=== PATIENT | female | born 1985 | race Caucasian/White ===

== ENCOUNTER 2017-12-06 09:56 | Emergency (ER) | payer MEDICAID ==
[~2017-12-06] VITALS: Ht 154.9 cm; Wt 46.4 kg
[2017-12-06 09:56] VITALS: BP 117/76
[~2017-12-06 09:56] MED LIST: ALBU8HFA PO; BISA10SU60 RC; CLIN-80 PO; HYDR-569 PO; LOPE2CAP PO; MAGN296S50 PO; NO HOME MEDS; ONDA4TAB6 PO; PRED10TA PO; TRIA15CR61 TOP
[2017-12-06] MEDS ORDERED: ACET1TAB12 PO (10:19)
[2017-12-06] MEDS ORDERED: IBUP-1986 PO (10:19)
[2017-12-06] MEDS ORDERED: CEPH500C5 PO (10:19)
== END 2017-12-06 11:07 | disposition home or self-care (01) ==
LOC: ER 09:56
DX: S91.031A Puncture wound without foreign body, right ankle, initial encounter (principal); F15.10 Other stimulant abuse, uncomplicated; W20.8XXA Other cause of strike by thrown, projected or falling object, initial encounter; Y93.89 Activity, other specified; Y92.89 Other specified places as the place of occurrence of the external cause; Y99.8 Other external cause status; Z79.899 Other long term (current) drug therapy; Z88.0 Allergy status to penicillin
CPT/HCPCS: 73600; 99284

== ENCOUNTER 2019-08-15 09:51 | Emergency (ER) | payer MEDICAID ==
[~2019-08-15] VITALS: Ht 154.9 cm; Wt 47.7 kg
[~2019-08-15 09:51] MED LIST changes: +ACET1TAB12 PO; -CLIN-80 PO; +CLIN-96 PO; +HYDR-4383 PO; -HYDR-569 PO; +IBUP-1986 PO; -TRIA15CR61 TOP
[2019-08-15 10:36] LABS: CLARITY,URINE CLOUDY (Clear); COLOR,URINE YELLOW (Yellow); GLUCOSE, URINE NEGATIVE (Neg); KETONES,URINE NEGATIVE (Neg); LEUKOCYTE ESTERASE ,URINE NEGATIVE (Neg); NITRITES, URINE POSITIVE (Neg); OCCULT BLOOD,URINE TRACE-LYSED (Neg); PH,URINE 7.5 (4.8-8.0); PROTEIN,URINE NEGATIVE (Neg); URINE HCG NEGATIVE (NEG); UROBILINOGEN,URINE 0.2 E.U/dL (0.2-1.0)
[2019-08-15 10:42] LABS: UA COLLECTION TYPE CLN CATCH MIDSTREAM
[2019-08-15 10:44] LABS: BACTERIA,URINE 4+ /HPF (Neg); RBC,URINE 0-2 /HPF (0-2); SQUAMOUS EPITHELIAL CELL,UR FEW /LPF (FEW); WBC CLUMPS,URINE FEW /HPF (NEGATIVE)
[2019-08-15] MEDS ORDERED: ketorolac tromethamine 15mg/ml inj. IM ONE (11:05)
[2019-08-15] MEDS ORDERED: ciprofloxacin 250mg tablet PO ONE (11:05)
[2019-08-15] MEDS ORDERED: TRAM50TA2 PO (11:06)
[2019-08-15] MEDS ORDERED: CIPR-230 PO (11:06)
[2019-08-15] MEDS ORDERED: ondansetron 4mg rapidly disintigrating tab PO ONE (11:35)
[2019-08-15 12:06] VITALS: BP 115/68
== END 2019-08-15 12:10 | disposition home or self-care (01) ==
LOC: ER 09:52
DX: N12 Tubulo-interstitial nephritis, not specified as acute or chronic (principal); F12.90 Cannabis use, unspecified, uncomplicated; F15.90 Other stimulant use, unspecified, uncomplicated; Z87.442 Personal history of urinary calculi; Z98.61 Coronary angioplasty status; Z98.890 Other specified postprocedural states; Z88.0 Allergy status to penicillin; Z79.2 Long term (current) use of antibiotics; Z79.899 Other long term (current) drug therapy
CPT/HCPCS: 81001; 81025; 87088; 87186; 96372; 99283; J1885; 87077

== ENCOUNTER 2020-06-23 19:31 | Emergency (ER) | payer MEDICAID, OTHER ==
[~2020-06-23] VITALS: Ht 154.9 cm; Wt 50.0 kg
[~2020-06-23 19:31] MED LIST changes: -CLIN-96 PO; +CLIN-97 PO; -MAGN296S50 PO; +MAGN296S70 PO
[2020-06-23 20:12] LABS: BASOPHILS % (AUTO) 0.1 % (0-1); EOSINOPHILS # (AUTO) 0.1 X10'3 (0-0.9); EOSINOPHILS % (AUTO) 0.3 % (0-6); HEMOGLOBIN 13.1 g/dl (12.0-16.0); LYMPHOCYTES # (AUTO) 2.4 X10'3 (1.1-4.8); LYMPHOCYTES % (AUTO) 12.4 % (21-51); MEAN CORPUSCULAR HEMOGLOBIN 33.5 PG (27.0-31.0); MEAN CORPUSCULAR HGB CONC 33.5 g/dL (33.0-36.5); MEAN CORPUSCULAR VOLUME 100.1 FL (78-98); MEAN PLATELET VOLUME 7.9 FL (7.4-10.4); MONOCYTES # (AUTO) 1.2 X10'3 (0-0.9); MONOCYTES % (AUTO) 6.3 % (2-12); NEUTROPHILS # (AUTO) 15.3 X10'3 (1.8-7.7); NEUTROPHILS % (AUTO) 80.9 % (42-75); PLATELET COUNT 207 X10'3 (140-440); RED CELL DISTRIBUTION WIDTH 13.6 % (11.5-14.5)
[2020-06-23 20:13] LABS: CLARITY,URINE SLIGHTLY CLOUDY (Clear); COLOR,URINE YELLOW (Yellow); GLUCOSE, URINE NEGATIVE (Neg); KETONES,URINE NEGATIVE (Neg); LEUKOCYTE ESTERASE ,URINE TRACE (Neg); NITRITES, URINE NEGATIVE (Neg); OCCULT BLOOD,URINE SMALL (Neg); PROTEIN,URINE 30 mg/dl (Neg); UROBILINOGEN,URINE 0.2 E.U/dL (0.2-1.0)
[2020-06-23 20:15] LABS: UA COLLECTION TYPE CLN CATCH MIDSTREAM
[2020-06-23 20:20] LABS: URINE HCG NEGATIVE (NEG)
[2020-06-23 20:23] LABS: ALANINE AMINOTRANSFERASE 34 U/L (12-78); ALBUMIN 3.8 G/DL (3.4-5.0); ALBUMIN/GLOBULIN RATIO 1.1 (1.1-1.5); ALKALINE PHOSPHATASE 71 IU/L (46-116); ANION GAP 7 (8-16); ASPARTATE AMINO TRANSFERASE 32 U/L (10-37); BILIRUBIN,TOTAL 0.4 MG/DL (0.1-1.0); BLOOD UREA NITROGEN 15 MG/DL (7-18); BUN/CREATININE RATIO 18.8 (6.6-38.0); CALCIUM 9.6 MG/DL (8.5-10.1); CHLORIDE 100 MMOL/L (99-107); GLUCOSE 88 MG/DL (70-104); POTASSIUM 3.8 MMOL/L (3.5-5.1); SODIUM 133 MMOL/L (135-145); TOTAL CARBON DIOXIDE 26.5 MMOL/L (24-32); TOTAL PROTEIN 7.4 G/DL (6.4-8.2); eGFR 82 ML/MIN
[2020-06-23 20:38] LABS: WBC,URINE 20-30 /HPF (0-4)
[2020-06-23 20:40] LABS: BACTERIA,URINE 2+ /HPF (Neg); MUCUS STRANDS MODERATE /LPF (Neg); RBC,URINE 0-2 /HPF (0-2); SQUAMOUS EPITHELIAL CELL,UR FEW /LPF (FEW)
[2020-06-23 20:41] LABS: AMORPHOUS URATES 1+; WBC CLUMPS,URINE MODERATE /HPF (NEGATIVE)
[2020-06-23] MEDS ORDERED: morphine 4 MG/ML inj SYRINge IV PRN (20:55)
[2020-06-23] MEDS ORDERED: normal saline 1000ML IV soln IV ONE (20:55)
[2020-06-23] MEDS ORDERED: levoFLOXACIN-Levaquin 750MG/D5 150 ML IV ONE (20:55)
[2020-06-23] MEDS ORDERED: ondansetron/PF 4mg/2ml inj IV ONE (20:55)
[2020-06-23] MEDS ORDERED: LEVO750T21 PO (22:06)
[2020-06-23 22:42] VITALS: BP 103/66
== END 2020-06-23 22:45 | disposition home or self-care (01) ==
LOC: ER 19:32
DX: N10 Acute pyelonephritis (principal); F12.90 Cannabis use, unspecified, uncomplicated; F17.200 Nicotine dependence, unspecified, uncomplicated; F15.90 Other stimulant use, unspecified, uncomplicated; Z98.61 Coronary angioplasty status; Z98.890 Other specified postprocedural states; Z88.0 Allergy status to penicillin; Z79.2 Long term (current) use of antibiotics; Z79.899 Other long term (current) drug therapy
CPT/HCPCS: 36415; 80053; 81001; 81025; 85025; 87077; 87088; 87186; 96365; 96375; 99284; J1956; J2270; J2405; J7030

== ENCOUNTER 2020-08-24 19:31 | Emergency (ER) | payer MEDICAID ==
[~2020-08-24] VITALS: Ht 154.9 cm; Wt 50.0 kg
[2020-08-24 19:34] VITALS: BP 100/56
[2020-08-24 19:57] LABS: COLOR,URINE YELLOW (Yellow); GLUCOSE, URINE NEGATIVE (Neg); KETONES,URINE TRACE mg/dl (Neg); LEUKOCYTE ESTERASE ,URINE MODERATE (Neg); NITRITES, URINE POSITIVE (Neg); OCCULT BLOOD,URINE LARGE (Neg); PH,URINE 6.5 (4.8-8.0); PROTEIN,URINE 30 mg/dl (Neg); URINE HCG NEGATIVE (NEG); UROBILINOGEN,URINE 0.2 E.U/dL (0.2-1.0)
[2020-08-24 20:02] LABS: CLARITY,URINE SLIGHTLY CLOUDY (Clear); UA COLLECTION TYPE NON-SPECIFIED
[2020-08-24 20:03] LABS: BACTERIA,URINE 1+ /HPF (Neg); SQUAMOUS EPITHELIAL CELL,UR FEW /LPF (FEW); WBC CLUMPS,URINE MODERATE /HPF (NEGATIVE); WBC,URINE 50-100 /HPF (0-4)
[2020-08-24] MEDS ORDERED: CefTRIAXone 1000mg IM Kit (w/lidocaine diluent) IM ONE (21:50)
[2020-08-24] MEDS ORDERED: ibuprofen tablet 400 MG TABLET PO ONE (21:50)
[2020-08-24] MEDS ORDERED: IBUP-1984 PO (21:50)
[2020-08-24] MEDS ORDERED: acetaminophen 325mg tablet PO ONE (21:50)
[2020-08-24] MEDS ORDERED: ondansetron 4mg rapidly disintigrating tab PO ONE (21:50)
[2020-08-24] MEDS ORDERED: CIP750T PO (21:50)
--- NOTE | 2020-08-24 22:50 | NUR ---
pt didn't want to wait for motrin prescription correction, so left without motrin prescription.
== END 2020-08-24 22:51 | disposition home or self-care (01) ==
LOC: ER 19:32
DX: N39.0 Urinary tract infection, site not specified (principal); F12.90 Cannabis use, unspecified, uncomplicated; F15.90 Other stimulant use, unspecified, uncomplicated; Z90.49 Acquired absence of other specified parts of digestive tract; Z90.89 Acquired absence of other organs; Z98.890 Other specified postprocedural states; Z72.89 Other problems related to lifestyle; Z88.0 Allergy status to penicillin; Z79.899 Other long term (current) drug therapy
CPT/HCPCS: 81001; 81025; 87077; 87088; 87186; 96372; 99284; J0696

== ENCOUNTER 2021-11-16 20:13 | Emergency (ER) | payer MEDICAID ==
[~2021-11-16] VITALS: Ht 154.9 cm; Wt 47.7 kg
[2021-11-16 20:15] VITALS: BP 125/44
[2021-11-16 21:40] LABS: CLARITY,URINE CLOUDY (Clear); COLOR,URINE YELLOW (Yellow); GLUCOSE, URINE NEGATIVE (Neg); KETONES,URINE NEGATIVE (Neg); LEUKOCYTE ESTERASE ,URINE SMALL (Neg); NITRITES, URINE NEGATIVE (Neg); OCCULT BLOOD,URINE LARGE (Neg); PH,URINE 6.5 (4.8-8.0); PROTEIN,URINE 100 mg/dl (Neg); UROBILINOGEN,URINE 0.2 E.U/dL (0.2-1.0)
[2021-11-16 21:44] LABS: URINE HCG NEGATIVE (NEG)
[2021-11-16 21:51] LABS: UA COLLECTION TYPE CLN CATCH MIDSTREAM
[2021-11-16 21:52] LABS: BACTERIA,URINE FEW /HPF (Neg); RBC,URINE 50-100 /HPF (0-2); SQUAMOUS EPITHELIAL CELL,UR MODERATE /LPF (FEW)
== END 2021-11-16 23:15 | disposition left against medical advice (07) ==
LOC: ER 20:14
DX: R10.84 Generalized abdominal pain (principal); Z53.21 Procedure and treatment not carried out due to patient leaving prior to being seen by health care provider
CPT/HCPCS: 81001; 81025; 87088

== ENCOUNTER 2021-12-16 03:18 | Emergency (ER) | payer MEDICAID | END 2021-12-16 06:56 | disposition left against medical advice (07) | LOC: ER 03:19 | DX: N23 Unspecified renal colic (principal); Z53.21 Procedure and treatment not carried out due to patient leaving prior to being seen by health care provider ==

== ENCOUNTER 2023-03-03 23:47 | Emergency (ER) | payer MEDICAID ==
[~2023-03-03] VITALS: Ht 152.4 cm; Wt 47.7 kg
[~2023-03-03 23:47] MED LIST changes: -MAGN296S70 PO; +MAGN296S89 PO
[2023-03-03 23:52] VITALS: BP 106/63
[2023-03-04 00:30] LABS: CLARITY,URINE SLIGHTLY CLOUDY (Clear); COLOR,URINE YELLOW (Yellow); GLUCOSE, URINE NEGATIVE (Neg); KETONES,URINE NEGATIVE (Neg); LEUKOCYTE ESTERASE ,URINE TRACE (Neg); NITRITES, URINE POSITIVE (Neg); OCCULT BLOOD,URINE TRACE-INTACT (Neg); PROTEIN,URINE NEGATIVE (Neg); UROBILINOGEN,URINE 0.2 E.U/dL (0.2-1.0)
[2023-03-04 00:32] LABS: UA COLLECTION TYPE CLN CATCH MIDSTREAM
[2023-03-04 00:39] LABS: BACTERIA,URINE 4+ /HPF (Neg); MUCUS STRANDS FEW /LPF (Neg); RBC,URINE 0-2 /HPF (0-2); SQUAMOUS EPITHELIAL CELL,UR FEW /LPF (FEW); TRANSITIONAL EPI CELLS,URINE FEW /HPF; WBC,URINE 20-30 /HPF (0-4)
[2023-03-04 00:40] LABS: AMORPHOUS PHOSPHATES 1+; WBC CLUMPS,URINE FEW /HPF (NEGATIVE)
--- NOTE | 2023-03-04 00:45 | NUR ---
pt refused covid and flu swab. dr small made aware.
[2023-03-04 00:51] LABS: BASOPHILS % (AUTO) 0.3 % (0-1); EOSINOPHILS % (AUTO) 0.3 % (0-6); HEMATOCRIT 37.3 % (35.0-45.0); HEMOGLOBIN 12.5 g/dl (12.0-16.0); LYMPHOCYTES # (AUTO) 2.3 X10'3 (1.1-4.8); MEAN CORPUSCULAR HEMOGLOBIN 33.2 PG (27.0-31.0); MEAN CORPUSCULAR HGB CONC 33.4 g/dL (33.0-36.5); MEAN CORPUSCULAR VOLUME 99.2 FL (78-98); MEAN PLATELET VOLUME 7.6 FL (7.4-10.4); MONOCYTES # (AUTO) 1.3 X10'3 (0-0.9); MONOCYTES % (AUTO) 10.2 % (2-12); NEUTROPHILS % (AUTO) 71.2 % (42-75); PLATELET COUNT 194 X10'3 (140-440); RED BLOOD COUNT 3.75 X10'6 (4.20-5.60); WHITE BLOOD COUNT 12.7 X10'3 (4.5-11.0)
[2023-03-04 01:15] LABS: ALANINE AMINOTRANSFERASE 23 U/L (12-78); ALBUMIN 3.4 G/DL (3.4-5.0); ALKALINE PHOSPHATASE 59 IU/L (46-116); ANION GAP 5 (8-16); ASPARTATE AMINO TRANSFERASE 22 U/L (10-37); BILIRUBIN,TOTAL 0.3 MG/DL (0.1-1.0); BLOOD UREA NITROGEN 12 MG/DL (7-18); BUN/CREATININE RATIO 15.2 (10.0-20.0); CALCIUM 8.8 MG/DL (8.5-10.1); CHLORIDE 103 MMOL/L (99-107); CREATININE 0.79 MG/DL (0.40-0.90); GLUCOSE 101 MG/DL (70-104); SODIUM 137 MMOL/L (135-145); TOTAL CARBON DIOXIDE 28.7 MMOL/L (24-32); TOTAL PROTEIN 6.8 G/DL (6.4-8.2); eGFR 81 ML/MIN
[2023-03-04 01:21] LABS: BETA HCG,QUANTITATIVE < 1.0 mIU/ml
== END 2023-03-04 03:39 | disposition left against medical advice (07) ==
LOC: ER 23:48
DX: R10.9 Unspecified abdominal pain (principal); Z53.21 Procedure and treatment not carried out due to patient leaving prior to being seen by health care provider
CPT/HCPCS: 36415; 80053; 81001; 84702; 85025; 87077; 87088; 87186; 99281

== ENCOUNTER 2023-03-27 01:58 | Emergency (ER) | payer MEDICAID ==
[~2023-03-27] VITALS: Ht 152.4 cm; Wt 47.7 kg
[2023-03-27 01:59] VITALS: BP 113/60
[2023-03-27 02:38] LABS: CLARITY,URINE SLIGHTLY CLOUDY (Clear); COLOR,URINE YELLOW (Yellow); GLUCOSE, URINE NEGATIVE (Neg); KETONES,URINE NEGATIVE (Neg); LEUKOCYTE ESTERASE ,URINE NEGATIVE (Neg); NITRITES, URINE POSITIVE (Neg); OCCULT BLOOD,URINE TRACE-INTACT (Neg); PH,URINE 6.5 (4.8-8.0); PROTEIN,URINE NEGATIVE (Neg); UROBILINOGEN,URINE 0.2 E.U/dL (0.2-1.0)
[2023-03-27 02:56] LABS: UA COLLECTION TYPE CLN CATCH MIDSTREAM
[2023-03-27 02:57] LABS: BACTERIA,URINE 4+ /HPF (Neg); SQUAMOUS EPITHELIAL CELL,UR MANY /LPF (FEW)
[2023-03-27] MEDS ORDERED: ondansetron/PF 4mg/2ml inj IV ONE (03:40)
[2023-03-27] MEDS ORDERED: morphine 4 MG/ML inj SYRINge IV PRN (03:40)
[2023-03-27] MEDS ORDERED: normal saline 1000ML IV soln IVB ONE (03:40)
[2023-03-27 04:52] LABS: BASOPHILS % (AUTO) 0.4 % (0-1); EOSINOPHILS % (AUTO) 0.2 % (0-6); HEMATOCRIT 35.2 % (35.0-45.0); HEMOGLOBIN 11.6 g/dl (12.0-16.0); LYMPHOCYTES # (AUTO) 0.5 X10'3 (1.1-4.8); LYMPHOCYTES % (AUTO) 7.6 % (21-51); MEAN CORPUSCULAR HEMOGLOBIN 32.7 PG (27.0-31.0); MEAN CORPUSCULAR VOLUME 98.9 FL (78-98); MEAN PLATELET VOLUME 8.1 FL (7.4-10.4); MONOCYTES # (AUTO) 0.9 X10'3 (0-0.9); MONOCYTES % (AUTO) 14.3 % (2-12); NEUTROPHILS # (AUTO) 4.7 X10'3 (1.8-7.7); NEUTROPHILS % (AUTO) 77.5 % (42-75); PLATELET COUNT 145 X10'3 (140-440); RED BLOOD COUNT 3.55 X10'6 (4.20-5.60); RED CELL DISTRIBUTION WIDTH 14.5 % (11.5-14.5)
[2023-03-27 05:05] LABS: ALANINE AMINOTRANSFERASE 18 U/L (12-78); ALBUMIN 3.3 G/DL (3.4-5.0); ALBUMIN/GLOBULIN RATIO 1.2 (1.1-1.5); ALKALINE PHOSPHATASE 56 IU/L (46-116); ANION GAP 5 (8-16); ASPARTATE AMINO TRANSFERASE 14 U/L (10-37); BILIRUBIN,TOTAL 0.2 MG/DL (0.1-1.0); BLOOD UREA NITROGEN 12 MG/DL (7-18); BUN/CREATININE RATIO 11.7 (10.0-20.0); CALCIUM 7.8 MG/DL (8.5-10.1); CHLORIDE 106 MMOL/L (99-107); CREATININE 1.03 MG/DL (0.40-0.90); GLUCOSE 93 MG/DL (70-104); LIPASE 52 U/L (73-393); SODIUM 136 MMOL/L (135-145); TOTAL CARBON DIOXIDE 25.3 MMOL/L (24-32); eGFR 60 ML/MIN
[2023-03-27] MEDS ORDERED: CefTRIAXone 2gm/D5W 50ml BAG 50 ML IV ONE (05:15)
[2023-03-27] MEDS ORDERED: CEPH-585 PO (06:05)
[2023-03-27] MEDS ORDERED: HYDR-3973 PO (06:05)
== END 2023-03-27 08:04 | disposition home or self-care (01) ==
LOC: ER 01:58
DX: N12 Tubulo-interstitial nephritis, not specified as acute or chronic (principal); F12.90 Cannabis use, unspecified, uncomplicated; F15.90 Other stimulant use, unspecified, uncomplicated; Z72.89 Other problems related to lifestyle; Z90.89 Acquired absence of other organs; Z98.890 Other specified postprocedural states; Z87.442 Personal history of urinary calculi; Z88.0 Allergy status to penicillin; Z79.899 Other long term (current) drug therapy
CPT/HCPCS: 36415; 74176; 80053; 81001; 83690; 85025; 96361; 96365; 96375; 99285; J0696; J2270; J2405; J7030

== ENCOUNTER 2023-03-29 14:29 | Emergency (ER) | payer MEDICAID ==
[~2023-03-29 14:29] MED LIST changes: +CEPH-585 PO; +HYDR-3973 PO
== END 2023-03-29 18:12 | disposition left against medical advice (07) ==
LOC: ER 14:30
DX: N20.0 Calculus of kidney (principal); N30.90 Cystitis, unspecified without hematuria; Z53.21 Procedure and treatment not carried out due to patient leaving prior to being seen by health care provider

== ENCOUNTER 2024-04-04 15:57 | Emergency (ER) | payer MEDICAID ==
[~2024-04-04] VITALS: Ht 152.4 cm; Wt 49.4 kg
[~2024-04-04 15:57] MED LIST changes: -CEPH-585 PO; -HYDR-3973 PO
[2024-04-04 16:05] VITALS: BP 129/70; PULSE 82; RESP 18; TEMP 98.9; O2SAT 99
[2024-04-04 16:59] LABS: URINE HCG NEGATIVE (NEG)
[2024-04-04 17:00] LABS: BILIRUBIN,URINE NEGATIVE (Neg); CLARITY,URINE CLOUDY (Clear); COLOR,URINE YELLOW (Yellow); GLUCOSE, URINE NEGATIVE (Neg); KETONES,URINE NEGATIVE (Neg); LEUKOCYTE ESTERASE ,URINE SMALL (Neg); NITRITES, URINE POSITIVE (Neg); OCCULT BLOOD,URINE TRACE-INTACT (Neg); PROTEIN,URINE NEGATIVE (Neg); UROBILINOGEN,URINE 0.2 E.U/dL (0.2-1.0)
[2024-04-04 17:03] LABS: UA COLLECTION TYPE CLN CATCH MIDSTREAM
[2024-04-04 17:11] LABS: SQUAMOUS EPITHELIAL CELL,UR MANY /LPF (FEW); WBC,URINE 50-100 /HPF (0-4)
[2024-04-04 17:12] LABS: BACTERIA,URINE 4+ /HPF (Neg); RBC,URINE NONE SEEN /HPF (0-2)
[2024-04-05] MEDS ORDERED: CEPH-585 PO (02:01)
[2024-04-05] MEDS ORDERED: TRAM50TA2 PO ×2 (02:02→02:04)
== END 2024-04-04 18:15 | disposition left against medical advice (07) ==
LOC: ER 15:57
DX: N23 Unspecified renal colic (principal); Z53.21 Procedure and treatment not carried out due to patient leaving prior to being seen by health care provider
CPT/HCPCS: 81001; 81025

== ENCOUNTER 2024-04-05 00:16 | Emergency (ER) | payer MEDICAID ==
[~2024-04-05] VITALS: Ht 152.4 cm; Wt 49.0 kg
[2024-04-05 00:22] VITALS: BP 104/69; PULSE 88; TEMP 98.2; O2SAT 99
[2024-04-05 00:51] LABS: BASOPHILS # (AUTO) 0.1 X10'3 (0-0.2); BASOPHILS % (AUTO) 0.8 % (0-1); EOSINOPHILS # (AUTO) 0.1 X10'3 (0-0.9); EOSINOPHILS % (AUTO) 1.2 % (0-6); HEMATOCRIT 36.4 % (35.0-45.0); HEMOGLOBIN 12.3 g/dl (12.0-16.0); LYMPHOCYTES # (AUTO) 2.4 X10'3 (1.1-4.8); LYMPHOCYTES % (AUTO) 31.4 % (21-51); MEAN CORPUSCULAR HEMOGLOBIN 33.7 PG (27.0-31.0); MEAN CORPUSCULAR HGB CONC 33.8 g/dL (33.0-36.5); MEAN CORPUSCULAR VOLUME 99.9 FL (78-98); MEAN PLATELET VOLUME 7.7 FL (7.4-10.4); MONOCYTES # (AUTO) 1.1 X10'3 (0-0.9); MONOCYTES % (AUTO) 14.9 % (2-12); NEUTROPHILS # (AUTO) 3.9 X10'3 (1.8-7.7); NEUTROPHILS % (AUTO) 51.7 % (42-75); PLATELET COUNT 219 X10'3 (140-440); RED BLOOD COUNT 3.64 X10'6 (4.20-5.60); RED CELL DISTRIBUTION WIDTH 14.3 % (11.5-14.5); WHITE BLOOD COUNT 7.6 X10'3 (4.5-11.0)
[2024-04-05 01:06] LABS: ALANINE AMINOTRANSFERASE 24 U/L (12-78); ALBUMIN 3.4 G/DL (3.4-5.0); ALBUMIN/GLOBULIN RATIO 1.1 (1.1-1.5); ALKALINE PHOSPHATASE 67 IU/L (46-116); ANION GAP 6 (8-16); ASPARTATE AMINO TRANSFERASE 17 U/L (10-37); BILIRUBIN,TOTAL 0.2 MG/DL (0.1-1.0); BLOOD UREA NITROGEN 17 MG/DL (7-18); BUN/CREATININE RATIO 19.8 (10.0-20.0); CALCIUM 8.7 MG/DL (8.5-10.1); CHLORIDE 105 MMOL/L (99-107); CREATININE 0.86 MG/DL (0.40-0.90); GLUCOSE 88 MG/DL (70-104); LIPASE 29 U/L (16-77); POTASSIUM 4.1 MMOL/L (3.5-5.1); SODIUM 140 MMOL/L (135-145); TOTAL PROTEIN 6.6 G/DL (6.4-8.2); eCRCL 63 ML/MIN; eGFR 73 ML/MIN
[2024-04-05 01:14] LABS: BILIRUBIN,URINE NEGATIVE (Neg); CLARITY,URINE SLIGHTLY CLOUDY (Clear); COLOR,URINE YELLOW (Yellow); GLUCOSE, URINE NEGATIVE (Neg); KETONES,URINE NEGATIVE (Neg); LEUKOCYTE ESTERASE ,URINE TRACE (Neg); NITRITES, URINE POSITIVE (Neg); OCCULT BLOOD,URINE SMALL (Neg); PH,URINE 6.5 (4.8-8.0); PROTEIN,URINE NEGATIVE (Neg); URINE HCG NEGATIVE (NEG); UROBILINOGEN,URINE 0.2 E.U/dL (0.2-1.0)
[2024-04-05 01:20] LABS: UA COLLECTION TYPE CLN CATCH MIDSTREAM
[2024-04-05 01:27] LABS: BACTERIA,URINE 4+ /HPF (Neg); SQUAMOUS EPITHELIAL CELL,UR FEW /LPF (FEW)
[2024-04-05 01:28] LABS: AMORPHOUS PHOSPHATES 1+; MUCUS STRANDS FEW /LPF (Neg); RENAL CELLS, URINE MODERATE /HPF; TRANSITIONAL EPI CELLS,URINE FEW /HPF
[2024-04-05] MEDS ORDERED: CEPH-585 PO (02:01)
[2024-04-05] MEDS ORDERED: TRAM50TA2 PO ×2 (02:02→02:04)
[2024-04-05] MEDS: cephalexin 250mg capsule PO ONE (02:11)
[2024-04-05] MEDS: ondansetron 4mg rapidly disintigrating tab PO ONE (02:11)
[2024-04-05] MEDS: HYDROcodone/acetaminophen 5mg/325mg tablet PO ONE (02:11)
[2024-04-05 02:12] VITALS: RESP 17
[2024-04-05] MEDS: ketorolac tromethamine 15mg/ml inj. IM ONE (02:12)
[2024-04-05 03:06] LABS: URINE AMPHETAMINE SCREEN POSITIVE (Neg); URINE BARBITUATE SCREEN NEGATIVE (Neg); URINE BENZODIAZEPINES SCREEN NEGATIVE (Neg); URINE CANNABINOID SCREEN POSITIVE (Neg); URINE COCAINE SCREEN NEGATIVE (Neg); URINE METHADONE SCREEN NEGATIVE (Neg); URINE OPIATE SCREEN NEGATIVE (Neg); URINE PHENCYCLIDINE SCREEN NEGATIVE (Neg)
== END 2024-04-05 03:03 | disposition home or self-care (01) ==
LOC: ER 00:17
DX: N39.0 Urinary tract infection, site not specified (principal); Z88.0 Allergy status to penicillin; Z98.890 Other specified postprocedural states; F12.90 Cannabis use, unspecified, uncomplicated; F15.90 Other stimulant use, unspecified, uncomplicated
CPT/HCPCS: 36415; 80053; 80305; 81001; 81025; 83690; 85025; 87088; 87186; 96372; 99284; J1885; 87077; 99283

== ENCOUNTER 2024-08-10 14:27 | Emergency (ER) | payer MEDICAID ==
[~2024-08-10] VITALS: Ht 162.6 cm; Wt 44.0 kg
[2024-08-10 15:25] LABS: BASOPHILS % (AUTO) 0.4 % (0-1); EOSINOPHILS # (AUTO) 0.1 X10'3 (0-0.9); EOSINOPHILS % (AUTO) 0.9 % (0-6); HEMATOCRIT 43.5 % (35.0-45.0); HEMOGLOBIN 14.5 g/dl (12.0-16.0); LYMPHOCYTES # (AUTO) 2.3 X10'3 (1.1-4.8); LYMPHOCYTES % (AUTO) 18.3 % (21-51); MEAN CORPUSCULAR HEMOGLOBIN 33.7 PG (27.0-31.0); MEAN CORPUSCULAR HGB CONC 33.2 g/dL (33.0-36.5); MEAN CORPUSCULAR VOLUME 101.5 FL (78-98); MEAN PLATELET VOLUME 8.2 FL (7.4-10.4); MONOCYTES # (AUTO) 1.1 X10'3 (0-0.9); MONOCYTES % (AUTO) 8.4 % (2-12); NEUTROPHILS # (AUTO) 9.1 X10'3 (1.8-7.7); PLATELET COUNT 201 X10'3 (140-440); RED BLOOD COUNT 4.29 X10'6 (4.20-5.60); RED CELL DISTRIBUTION WIDTH 14.6 % (11.5-14.5); WHITE BLOOD COUNT 12.7 X10'3 (4.5-11.0)
[2024-08-10] MEDS ORDERED: ibuprofen tablet 400 MG TABLET PO ONE (15:40)
[2024-08-10 15:41] LABS: ALANINE AMINOTRANSFERASE 29 U/L (12-78); ALBUMIN 3.5 G/DL (3.4-5.0); ALKALINE PHOSPHATASE 75 IU/L (46-116); ANION GAP 7 (8-16); ASPARTATE AMINO TRANSFERASE 19 U/L (10-37); BILIRUBIN,TOTAL 0.3 MG/DL (0.1-1.0); BLOOD UREA NITROGEN 16 MG/DL (7-18); CALCIUM 8.8 MG/DL (8.5-10.1); CHLORIDE 107 MMOL/L (99-107); CREATININE 0.94 MG/DL (0.40-0.90); GLUCOSE 93 MG/DL (70-104); LIPASE 32 U/L (16-77); SODIUM 140 MMOL/L (135-145); TOTAL CARBON DIOXIDE 26.5 MMOL/L (24-32); eCRCL 55 ML/MIN; eGFR 66 ML/MIN
[2024-08-10 15:54] LABS: URINE HCG NEGATIVE (NEG)
[2024-08-10 15:59] LABS: BILIRUBIN,URINE NEGATIVE (Neg); CLARITY,URINE SLIGHTLY CLOUDY (Clear); COLOR,URINE YELLOW (Yellow); GLUCOSE, URINE NEGATIVE (Neg); KETONES,URINE NEGATIVE (Neg); LEUKOCYTE ESTERASE ,URINE TRACE (Neg); NITRITES, URINE POSITIVE (Neg); OCCULT BLOOD,URINE NEGATIVE (Neg); PROTEIN,URINE NEGATIVE (Neg)
[2024-08-10 16:00] LABS: UA COLLECTION TYPE CLN CATCH MIDSTREAM
[2024-08-10] MEDS: CefTRIAXone 2gm/D5W 50ml BAG 50 ML IV ONE (16:03)
[2024-08-10] MEDS: normal saline 1000ML IV soln IV ONE (16:03)
[2024-08-10] MEDS: ibuprofen 200mg tablet PO ONE (16:08)
[2024-08-10 16:28] LABS: SQUAMOUS EPITHELIAL CELL,UR MODERATE /LPF (FEW)
[2024-08-10 16:29] LABS: BACTERIA,URINE 4+ /HPF (Neg); WBC,URINE 50-100 /HPF (0-4)
[2024-08-10 17:02] VITALS: BP 115/71; PULSE 82
[2024-08-10] MEDS ORDERED: CEPH-585 PO (18:09)
[2024-08-10] MEDS ORDERED: PHEN-716 PO (18:09)
[2024-08-10 18:11] VITALS: RESP 16; TEMP 98.6; O2SAT 98
== END 2024-08-10 18:15 | disposition home or self-care (01) ==
LOC: ER 14:28
DX: N39.0 Urinary tract infection, site not specified (principal); F12.90 Cannabis use, unspecified, uncomplicated; F15.90 Other stimulant use, unspecified, uncomplicated; Z88.8 Allergy status to other drugs, medicaments and biological substances; Z87.442 Personal history of urinary calculi; Z98.890 Other specified postprocedural states; Z72.89 Other problems related to lifestyle
CPT/HCPCS: 36415; 74176; 80053; 81001; 81025; 83605; 83690; 84145; 85025; 87040; 87088; 96365; 99285; J0696; J7030; 87077; 87186

== ENCOUNTER 2025-07-26 15:18 | Emergency (ER) | payer MEDICAID ==
[~2025-07-26 15:18] MED LIST changes: -ACET1TAB12 PO; -ALBU8HFA PO; -BISA10SU60 RC; -CLIN-97 PO; -HYDR-4383 PO; -IBUP-1986 PO; -LOPE2CAP PO; -MAGN296S89 PO; -ONDA4TAB6 PO; +PHEN-716 PO; -PRED10TA PO
== END 2025-07-26 16:03 | disposition left against medical advice (07) ==
LOC: ER 15:18
DX: R10.84 Generalized abdominal pain (principal); Z53.21 Procedure and treatment not carried out due to patient leaving prior to being seen by health care provider; Z88.0 Allergy status to penicillin